=== PATIENT | female | born 2000 | race Two or more races ===

== ENCOUNTER 2024-07-08 17:05 | Emergency (ER) | payer MEDICAID, SELFPAY ==
[2024-07-08 17:09] VITALS: BMI 38.6
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
[2024-07-08 17:21] VITALS: BP 124/59; PULSE 107; RESP 20; TEMP 37; O2SAT 96
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
--- NOTE | 2024-07-08 18:10 | PC.NURSE ---
[facility] OFFICER HERE TO TALK WITH PT
--- NOTE | 2024-07-08 18:33 | XR_ITS ---
Examination: AP chest single view TECHNIQUE: AP portable upright chest single view Date and time: July 08, 2024, 1922 hours INDICATIONS: Shortness of breath 2 days. FINDINGS: Normal heart size. Lungs are clear. Osseous structures are intact IMPRESSION: No active disease
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
--- NOTE | 2024-07-08 18:48 | PC.CC ---
Addendum entered by Kelsey Banegas RN 07/08/24 19:35: 1918: received call from Yue w/ [facility] accepting patient. however, [facility] as [facility]. Dr. Tafoya confirmed w/ patient that she prefers [facility]. Canceled transfer to [facility], spoke to Enedina. 1909: transfer packet w/ 1 CD given [employer] Alex. She will set up transport Original Note: 1844: clinicals and images sent to [facility], called and spoke to Yue at [facility], verbal clinical information provided. Yue requested to speak to Dr. Tafoya. Case discussed, Yue stated she is still waiting for the clinicals and images. once received, she will review and call back. 1832 received order for transfer for neurosurgery for subdural hematoma
--- NOTE | 2024-07-08 19:08 | PC.NURSE ---
[facility] ACCEPTED PATIENT ER TO ER DR SANCHEZ #[phone]
[2024-07-08 19:10] LABS: Basophils % (Auto) 0 % (0-2.5); Eosinophils # (Auto) 0.1 Thou/mm3 (0.0-0.5); Eosinophils % (Auto) 1 % (0-10); Hematocrit 41.8 % (36.0-46.0); Hemoglobin 14.8 g/dL (12.0-16.0); Immature Granulocytes % (Auto) 0 % (0-0); Immature Granulocytes Auto 0.03 Thou/mm3 (0.00-0.00); Lymphocytes % (Auto) 15 % (10-50); Mean Corpuscular HGB Conc 35.4 g/dl (31.0-37.0); Mean Corpuscular Volume 87 fL (80-100); Monocytes # (Auto) 0.9 Thou/mm3 (0.0-0.8); Monocytes % (Auto) 7 % (0-12); Neutrophils # (Auto) 10.2 Thou/mm3 (1.8-7.7); Neutrophils % (Auto) 77 % (37-80); Nucleated Red Blood Cell % 0 /100 WBC (0); Platelet Count 299 Thou/mm3 (140-440); RDW Standard Deviation 38.8 fL (36.4-46.3); Red Blood Count 4.78 Miln/mm3 (4.00-5.20); White Blood Count 13.3 Thou/mm3 (3.6-11.0)
[2024-07-08 19:24] LABS: Partial Thromboplastin Time 27.3 Seconds (22.0-36.0); Prothrombin Time 10.8 Seconds (9.0-12.2)
[2024-07-08 19:26] VITALS: BP 136/77; PULSE 107; RESP 18; TEMP 36.9; O2SAT 97
[2024-07-08 19:37] LABS: Alanine Aminotransferase 12 U/L (10-49); Albumin, Serum 4.8 gm/dL (3.5-5.0); Albumin/Globulin Ratio 1.7 (1.2-2.2); Alcohol, Blood Medical < 3.0 mg/dL (0-10.0); Alkaline Phosphatase 88 U/L (46-116); Anion Gap 11 (7-16); Aspartate Amino Transferase 23 U/L (0-34); BUN/Creatinine Ratio 10 Ratio (12-20); Bilirubin,Total 0.6 mg/dL (0.3-1.2); Blood Urea Nitrogen 8 mg/dL (9-23); Calcium 9.4 mg/dL (8.3-10.6); Calcium (Corrected) 9.4 mg/dL (8.5-10.1); Carbon Dioxide 24.8 mMol/L (20.0-31.0); Chloride 102 mMol/L (98-107); Creatinine (Component) 0.8 mg/dL (0.6-1.3); Estimated Creatinine Clearance 126.1 mL/min (>60); Globulin 2.8 gm/dL (2.3-3.5); Glucose 105 mg/dL (74-106); Osmolality,Calculated 273 (275-295); Potassium 3.6 mMol/L (3.4-5.1); Sodium 138 mMol/L (136-145); Total Protein 7.6 gm/dL (5.7-8.2); eGFR > 60 See Note
[2024-07-08 19:38] LABS: HCG,Qualitative Serum Negative
[2024-07-08 19:44] VITALS: BP 131/83; PULSE 99; RESP 17; O2SAT 99
--- NOTE | 2024-07-08 22:14 | PC.NURSE ---
report called via telephone to david brown from [facility]
== END 2024-07-08 20:31 | disposition short-term general hospital (02) ==
PROVIDERS: Emergency Provider Emergency Medicine; PCP Physician Assistant
DX: S06.5XAA Traumatic subdural hemorrhage with loss of consciousness status unknown, initial encounter (principal); Y04.0XXA Assault by unarmed brawl or fight, initial encounter; S40.812A Abrasion of left upper arm, initial encounter; R06.02 Shortness of breath
CPT/HCPCS: 36415; 70450; 71045; 80053; 80307; 80320; 81025; 83735; 84703; 85025; 85610; 85730; 99285; G0480

== ENCOUNTER 2024-08-10 17:16 | Emergency (ER) | payer MEDICAID, SELFPAY ==
[2024-08-10 17:30] VITALS: BP 126/87; PULSE 82; RESP 18; TEMP 37.3; O2SAT 96; BMI 38.6
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
[2024-08-10 18:43] LABS: Basophils # (Auto) 0.0 Thou/mm3 (0.0-0.2); Basophils % (Auto) 0 % (0-2.5); Eosinophils # (Auto) 0.1 Thou/mm3 (0.0-0.5); Eosinophils % (Auto) 1 % (0-10); Hematocrit 41.0 % (36.0-46.0); Hemoglobin 14.1 g/dL (12.0-16.0); Immature Granulocytes Auto 0.04 Thou/mm3 (0.00-0.00); Lymphocytes # (Auto) 2.5 Thou/mm3 (1.0-4.8); Lymphocytes % (Auto) 19 % (10-50); Mean Corpuscular HGB Conc 34.4 g/dl (31.0-37.0); Mean Corpuscular Hemoglobin 31.3 pg (25.0-35.0); Mean Corpuscular Volume 91 fL (80-100); Monocytes # (Auto) 0.9 Thou/mm3 (0.0-0.8); Monocytes % (Auto) 7 % (0-12); Neutrophils # (Auto) 9.8 Thou/mm3 (1.8-7.7); Neutrophils % (Auto) 73 % (37-80); Nucleated Red Blood Cell # 0.00 Thou/mm3 (0.00-0.00); Nucleated Red Blood Cell % 0 /100 WBC (0); Platelet Count 310 Thou/mm3 (140-440); RDW Standard Deviation 39.6 fL (36.4-46.3); Red Blood Count 4.50 Miln/mm3 (4.00-5.20); White Blood Count 13.3 Thou/mm3 (3.6-11.0)
[2024-08-10 19:02] LABS: Alanine Aminotransferase 13 U/L (10-49); Albumin, Serum 4.5 gm/dL (3.5-5.0); Albumin/Globulin Ratio 1.7 (1.2-2.2); Alkaline Phosphatase 74 U/L (46-116); Anion Gap 8 (7-16); Aspartate Amino Transferase 19 U/L (0-34); BUN/Creatinine Ratio 9 Ratio (12-20); Bilirubin,Total 1.0 mg/dL (0.3-1.2); Blood Urea Nitrogen 7 mg/dL (9-23); Calcium 9.2 mg/dL (8.3-10.6); Calcium (Corrected) 9.2 mg/dL (8.5-10.1); Carbon Dioxide 26.2 mMol/L (20.0-31.0); Chloride 109 mMol/L (98-107); Creatinine (Component) 0.8 mg/dL (0.6-1.3); Estimated Creatinine Clearance 117.1 mL/min (>60); Globulin 2.7 gm/dL (2.3-3.5); Glucose 92 mg/dL (74-106); Osmolality,Calculated 282 (275-295); Potassium 4.1 mMol/L (3.4-5.1); Sodium 143 mMol/L (136-145); Total Protein 7.2 gm/dL (5.7-8.2); eGFR > 60 See Note
[2024-08-10 22:51] VITALS: BP 112/66; PULSE 88; RESP 18; TEMP 37.2; O2SAT 98
--- NOTE | 2024-08-10 23:38 | PC.NURSE ---
per MD [place] records to be requested from [facility]-information technology project manager Jenny made aware.
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
[2024-08-11] MEDS: SODIUM CHLORIDE 0.9% 1000 ML 1,000 ML 999 ML IV (01:40)
--- NOTE | 2024-08-11 03:16 | PC.NURSE ---
WE HAD DOWN TIME FROM [id number].
[2024-08-11 03:28] VITALS: BP 113/73; PULSE 77; RESP 16; TEMP 36.8; O2SAT 98
--- NOTE | 2024-08-11 03:34 | PC.NURSE ---
pt states she is feling much better.
== END 2024-08-11 03:40 | disposition home or self-care (01) ==
PROVIDERS: Nurse Practitioner Family; Emergency Provider Emergency Medicine
DX: R51.9 Headache, unspecified (principal)
CPT/HCPCS: 36415; 70450; 80053; 85025; 96360; 99284; J7030

== ENCOUNTER → 2024-09-10 | Outpatient (CLI) | payer MEDICAID, SELFPAY ==
--- NOTE | 2024-09-10 14:37 | XR_ITS ---
Examination: Foot, right, 3 views Technique: AP, oblique, lateral views foot, 3 views Date and time of exam: September 10, 2024 1438 hours INDICATIONS: Patient fell 3 months ago with injury to the right foot, right foot pain FINDINGS: No acute fracture. No dislocation No foreign body IMPRESSION: No acute fracture
== END | disposition home or self-care (01) ==
LOC: CDIM 14:27
PROVIDERS: PCP Nurse Practitioner; Referring Provider Nurse Practitioner; Visit Provider Nurse Practitioner
DX: S99.921A Unspecified injury of right foot, initial encounter (principal); W19.XXXA Unspecified fall, initial encounter
CPT/HCPCS: 73630

== ENCOUNTER 2024-09-23 08:27 | Emergency (ER) | payer MEDICAID, SELFPAY ==
[2024-09-23 08:38] VITALS: BP 112/76; PULSE 67; RESP 16; TEMP 37; O2SAT 99; BMI 40.2
--- NOTE | 2024-09-23 09:05 | XR_ITS ---
Examination: Foot, left, 3 views Technique: AP, oblique, lateral views foot, 3 views Date and time of exam: September 23, 2024 0915 hours INDICATIONS: Injury to the foot 3 days ago, fifth digit pain. FINDINGS: Nondisplaced fracture proximal aspect proximal phalanx fifth digit No dislocation IMPRESSION: Nondisplaced fracture proximal aspect proximal phalanx fifth digit
--- NOTE | 2024-09-23 09:23 | PD.EDANKLE ---
Lower Extremity Injury RME/HPI General Chief Complaint: Ankle/Foot Injury Stated Complaint: toe pain from her shoe Time Seen by Provider: 09/23/24 08:35 Arrival date/time: 09/23/24 08:27 24-year-old female presents to the emergency department today for complaints of left fifth digit toe pain patient reports symptoms ongoing for the last 3 days patient reports no recent injury Limitations: no limitations Related Data Home Medications ?Medication ?Instructions ?Recorded ?Confirmed folic acid 1 mg tablet 06/09/22 vit no.95-ferrous tab PO 06/09/22 fumarate 28 mg-folic acid 800 mcg tablet () Previous Rx's ?Medication ?Instructions ?Recorded docusate sodium 100 mg capsule 100 mg PO BID #60 caps 06/10/22 (Colace) ibuprofen 800 mg tablet 800 mg PO Q6H PRN pain #90 tabs 06/10/22 lanolin 50 % topical ointment 1 applic topical TID PRN skin 06/10/22 irritation #15 tubes ibuprofen 600 mg tablet 600 mg PO Q6H #30 tabs 09/23/24 Allergies Allergy/AdvReac Type Severity Reaction Status Date / Time No Known Allergies Allergy Verified 09/23/24 08:31 Review of Systems Review of Systems Systems Reviewed: All systems reviewed, normal except as documented Constitutional Constitutional: Reports system reviewed and no additional complaints, except as documented, Denies fatigue, Denies fever(s) and Denies headache(s) Eyes Eyes: Reports system reviewed and no additional complaints, except as documented and Denies blurry vision ENT Ears, Nose, Mouth, and Throat: Reports system reviewed and no additional complaints, except as documented, Denies headache(s), Denies nasal congestion and Denies nasal discharge Cardiovascular Cardiovascular: Reports system reviewed and no additional complaints, except as documented, Denies chest pain and Denies dyspnea Respiratory Respiratory: Reports system reviewed and no additional complaints, except as documented, Denies chest congestion, Denies cough and Denies dyspnea Gastrointestinal Gastrointestinal: Reports system reviewed and no additional complaints, except as documented and Denies abdominal pain Genitourinary Genitourinary: Reports system reviewed and no additional complaints, except as documented, Denies flank pain, Denies hematuria and Denies pelvic pain Musculoskeletal Musculoskeletal: Reports system reviewed and no additional complaints, except as documented, Denies abnormal gait, Reports arthralgias (left 5th digit pain ), Denies deformity, Denies joint swelling, Denies numbness, Denies stiffness and Denies tingling Integumentary/Breasts Skin/Breast: Reports system reviewed and no additional complaints, except as documented and Denies rash Neurologic Neurologic: Reports system reviewed and no additional complaints, except as documented, Reports as per HPI, Denies abnormal gait, Denies headache(s), Denies numbness and Denies tingling Psychiatric Psychiatric: Reports system reviewed and no additional complaints, except as documented and Denies anxiety Endocrine Endocrine: Denies fatigue Past Medical History Past Medical History NEUROLOGIC: Negative Neurological Disorders CARDIAC: Negative Cardiac Disorders or Congestive Heart Failure RESPIRATORY: Negative Chronic Obstructive Pulmonary Disease (COPD) GASTROINTESTINAL: Negative Gastrointestinal Disorders GENITOURINARY: Negative Genitourinary Disorders or Renal Disease MUSCULOSKELETAL: Negative Musculoskeletal Disorders ENDOCRINE: Negative Endocrine Disorders, Diabetes Mellitus Type 1 or Diabetes Mellitus Type 2 HEMATOLOGIC: Negative Blood Disorders OTHER HISTORY: Negative Hospitalization, Autoimmune Disease, Down Syndrome, Developmental Delay or Falls Family History FAMILY HISTORY: Negative Family Cardiac Disorders Surgical History SURGICAL: Negative Section Social History SMOKING STATUS: Never smoker ED Exam General Limitations: Present no limitations General appearance: Present alert and in no apparent distress Head Head exam: Present atraumatic Eye Eye exam: Present normal appearance, PERRL and EOMI ENT ENT exam: Present normal exam, normal oropharynx and mucous membranes moist Neck Neck exam: Present normal inspection, full ROM and trachea midline Chest Chest inspection: Present normal inspection and symmetric chest wall rise Respiratory Respiratory exam: Present normal lung sounds bilaterally Cardiovascular Cardiovascular exam: Present regular rate, normal rhythm and normal heart sounds Abdominal Exam Abdominal exam: Present soft and normal bowel sounds Extremities Exam Extremities exam: Present full ROM, tenderness and normal capillary refill; Absent joint swelling Back Exam Back exam: Present normal inspection and full ROM Neurological Exam Neurological exam: Present alert, oriented X3 and CN II-XII intact Psychiatric Psychiatric exam: Present normal affect and normal mood Skin Skin exam: Present warm, dry, intact and normal color Course Quality Measures none Orders Category Date Time Status Crutches .NOW Care 09/23/24 09:52 Completed XR foot comp LT min 3V Stat Exams 09/23/24 09:05 Completed Vital Signs Vital signs: Vital Signs Temperature 98.6 F 09/23/24 08:38 Pulse Rate 67 09/23/24 08:38 Respiratory Rate 16 09/23/24 08:38 Blood Pressure 112/76 09/23/24 08:38 Pulse Oximetry (%) 99 09/23/24 08:38 Oxygen Delivery Method Room Air 09/23/24 08:38 o2 sat 995 r.a wnl Extremity Injury, Lower MDM Narrative MDM Narrative:: 24-year-old female presents to the emergency department today for complaints of left fifth digit toe pain patient reports symptoms ongoing for the last 3 days patient reports no recent injury On exam patient has pain to the left toe no swelling or bruising noted Imaging obtained patient has fracture left foot fifth digit Patient given crutches Juan Manuel tape applied Patient discharged home no distress follow-up primary care doctor next 24 to 48 hours for worsening symptoms return immediately Patient data External records reviewed:: [facility] previous records Clinical information provided by:: patient Social determinants that could affect healthcare access:: none Patient has the following chronic illnesses:: none How is presenting disease/condition affected by chronic disease/condition?: no chronic disease Evaluation data The following diagnostics were reviewed and interpreted by me:: radiology exam(s) Lab and/or radiology exams considered but not ordered:: rad obtained Interpretation Summary: Reviewed by me Medications / Prescriptions Medications or Prescriptions considered but not ordered:: Given Medication administrations:: Given Consultations Consultation(s) initiated? (list below): No Diagnosis Extremity Injury, Lower Differential Diagnosis: other Most likely diagnosis given after review of the tests above:: Toe pain left Admission Indicated Admission indicated?: not indicated Admission Request Was there a request for admission?: No Disposition Plan Disposition Plan: Discharge Discharge Attestation Discharge Attestation: The patient and all family members were given an opportunity to ask questions and understood the discharge instructions. Discharge instructions specifically effects, indications for sooner follow up or return to the emergency department, and the expected course of current diagnosis. Patient condition: Stable Discharge Plan Plan Patient Disposition: HOME (Self Care) Discharge Disposition comment: Stable Prescriptions/Referrals Prescriptions/Med Rec: New ibuprofen 600 mg tablet 600 mg PO Q6H Qty: 30 0RF No Action folic acid 1 mg tablet PNV no.95-ferrous fumarate-FA [] 28 mg iron- 800 mcg tablet PO ibuprofen 800 mg tablet 800 mg PO Q6H MDD 4 PRN (Reason: pain) Qty: 90 0RF docusate sodium [Colace] 100 mg capsule 100 mg PO BID Qty: 60 0RF lanolin 50 % ointment 1 applic topical TID PRN (Reason: skin irritation) Qty: 15 0RF Referrals: Dorina Valdez NP [Primary Care Provider] - 09/24/24 Problem List Clinical Impression: Fracture of toe of left foot Patient/Caregiver Discharge Instructions Education Materials: ED Fracture, Foot Additional Instructions: Please follow up with your primary care doctor in the next 24-48hrs for any worsening symptoms return here immediately Print Language: Iranian Stand Alone Forms: [employer] Award Info., Patient Portal Info Letter PA/GEOTHERMAL HVAC TECHNICIAN Supervising Physician PA/GEOTHERMAL HVAC TECHNICIAN Supervising Physician: Dr. finnegan
== END 2024-09-23 10:38 | disposition home or self-care (01) ==
PROVIDERS: Emergency Provider Family Medicine; PCP Nurse Practitioner
DX: S92.515A Nondisplaced fracture of proximal phalanx of left lesser toe(s), initial encounter for closed fracture (principal); X58.XXXA Exposure to other specified factors, initial encounter
CPT/HCPCS: 73630; 99283

== ENCOUNTER → 2024-09-29 | Outpatient (CLI) | payer MEDICAID, SELFPAY ==
--- NOTE | 2024-09-29 15:30 | XR_ITS ---
Examination: MRI brain without intravenous contrast. Date and time of exam: September 29, 2024, 1708 hours INDICATIONS: Right-sided headaches and dizziness beginning July 08, 2024. Technique: Multiple axial and sagittal images of the brain obtained. Siemens high-resolution 1.5 Chelly short bore scanners utilized. Sagittal sections, T1-weighted, TR 500, TE 14, are performed. Axial sections proton-density and T2-weighted have been obtained. Inversion recovery axial images, TR 9, 260, TE 111, TI 2500. Diffusion weighted images, axial sections, TR 4800, TE 128, B value 1000 Axial sections, ADC map, TR 4800, TE 128 Findings: Enlargement of the sella turcica is not present. The optic chiasm and infundibular are not remarkable. Prepontine and interpeduncular cisterns are not enlarged. There is no localized enlargement of the medulla or elisa. Fourth ventricle and cerebellar tonsils appear normal in position. No subacute area of hemorrhage density is seen. Mass in the cerebellopontine angle region is not evident. Globes symmetrical. Orbital musculature including medial lateral rectus muscles do not exhibit abnormality. Diffusion-weighted images demonstrate no focus of restricted diffusion. Increased white matter signal not seen Mass effect upon the ventricular system is not identified. Impression: Negative for acute hemorrhage, mass effect or midline shift No acute infarct No MR findings diagnostic for demyelinating disease
== END | disposition home or self-care (01) ==
LOC: SMRI 15:26
PROVIDERS: PCP Nurse Practitioner; Referring Provider Nurse Practitioner; Visit Provider Nurse Practitioner
DX: R93.0 Abnormal findings on diagnostic imaging of skull and head, not elsewhere classified (principal)
CPT/HCPCS: 70551